=== PATIENT | male | born 1940 | race Caucasian/White ===

== ENCOUNTER 2020-11-08 07:15 | Day surgery (SDC) | payer MEDICARE, OTHER ==
[2020-11-06 11:33] VITALS: BMI 25.7
[~2020-11-08 07:15] MED LIST: ALPRAZolam 0.25 MG TAB PO PRN; ALPRAZolam 0.5 MG TAB PO PRN; ASPIRIN 325 MG TAB PO STA; ATORVASTATIN 80 MG TAB PO STA; HEPARIN SODIUM,PORCINE 10,000 UNIT in SODIUM CHLORIDE 0.9% 1,000 ML IRRIGATION PRN; HEPARIN SODIUM,PORCINE 2,500 UNIT in SODIUM CHLORIDE 0.9% 250 ML IRRIGATION PRN; NITROGLYCERIN SL TABS 0.4 MG TAB SUBLINGUAL PRN; SODIUM CHLORIDE 0.9% 1,000 ML in EMPTY BAG 1 BAG IV ONE
[2020-11-08] MEDS ORDERED: ASPIRIN 81 MG ONE (07:35)
[2020-11-08] MEDS ORDERED: lisinopriL 5 MG TAB PO STA (07:41)
[2020-11-08 07:46] VITALS: RESP 18; TEMP 97.2
[2020-11-08 07:52] LABS: Glucose,Whole Blood 176 mg/dL (75-99)
[2020-11-08 07:59] LABS: Basophils % (A) 1 %; Eosinophils # (A) 0.2 k/uL (0-0.7); Eosinophils % (A) 5 %; HGB 14.8 gm/dL (13.0-17.5); Lymphocytes # (A) 1.5 k/uL (1.0-4.8); Lymphocytes % (A) 36 %; MCH 32.1 pg (25.0-35.0); MCHC 33.7 g/dL (31.0-37.0); MCV 95.2 fL (80.0-100.0); Mean Platelet Volume 7.7; Monocytes # (A) 0.4 k/uL (0-1.0); Monocytes % (A) 9 %; Neutrophils # (A) 1.9 k/uL (1.3-7.7); Neutrophils % (A) 46 %; Platelet Count 195 k/uL (150-450); RBC 4.63 m/uL (4.30-5.90); RDW 13.2 % (11.5-15.5); WBC 4.1 k/uL (3.8-10.6)
[2020-11-08 08:08] LABS: African American GFR (CKD) >90 (>60 ml/min/1.73 sqM); Anion Gap 8 mmol/L; Blood Urea Nitrogen 18 mg/dL (9-20); Calcium 9.6 mg/dL (8.4-10.2); Carbon Dioxide 24 mmol/L (22-30); Chloride 105 mmol/L (98-107); Glucose 200 mg/dL (74-99); Non-African American GFR(CKD) >90 (>60 ml/min/1.73 sqM); Sodium 137 mmol/L (137-145)
[2020-11-08 08:12] LABS: Potassium 4.4 mmol/L (3.5-5.1)
[2020-11-08] MEDS ORDERED: LIDOCAINE 1% INJ 10MG/ML (20 ML MDV) ONE (08:29)
[2020-11-08] MEDS ORDERED: VERAPAMIL 2.5 MG/ML 2 ML AMP ONE (08:29)
[2020-11-08] MEDS ORDERED: fentaNYL (PF) 50 MCG/ML 2 ML AMP ONE (08:51)
[2020-11-08] MEDS ORDERED: fentaNYL (PF) 50 MCG/ML 2 ML AMP IV ONE (09:07)
[2020-11-08] MEDS ORDERED: LIDOCAINE 1% INJ 10MG/ML (20 ML MDV) SQ ONE (09:09)
[2020-11-08] MEDS ORDERED: VERAPAMIL SYRINGE (5 MG/10 ML) INTRAARTER ONE (09:11)
[2020-11-08] MEDS ORDERED: HEPARIN SODIUM 1,000 UN/ML (10ML VL) IV ONE (09:16)
[2020-11-08] MEDS ORDERED: IOPAMIDOL-370 125ML BTL INJ ONE (09:23)
[2020-11-08] MEDS ORDERED: RX INFO: IV CONTRAST WAS GIVEN 1 EACH MISC MISCELLANE PRN (09:32)
[2020-11-08] MEDS ORDERED: SODIUM CHLORIDE 0.9% 1,000 ML IV SCH (09:45)
[2020-11-08 13:36] VITALS: BP 121/54; PULSE 56
--- NOTE | 2020-11-08 14:43 | CC ---
CARDIAC CATHETERIZATION REPORT Mr. Wyatt is an 80-year-old male with known history of hypertension, hyperlipidemia, diabetes mellitus, who has been complaining of chest discomfort. He underwent myocardial perfusion imaging that revealed evidence of inducible ischemia. In view of that, recommendation was made regarding cardiac catheterization. The procedure as well as the risks and the complications were discussed with the patient, who is in full understanding and agreement. 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 Using Xylocaine anesthesia, Seldinger technique a 6-Kazakh sheath was introduced in the right radial artery. Selective right and left coronary angiography performed using 5-Kazakh 3 and a half bend right and left Bakari catheter. Multiple views of the coronary artery including hemiaxial views were obtained. Following that 5-Kazakh tight pigtail catheter was introduced in the left ventricle and pressures were calculated. Following that, catheter and sheath were removed. Hemostasis was obtained with deployment of TR band. There was no immediate complication. Patient was returned to his room in stable condition. Of note, the patient received 4000 units of intravenous heparin as well as intra-arterial verapamil. FINDINGS: FLUOROSCOPY: There was calcification involving the left anterior descending artery. SELECTIVE CORONARY ANGIOGRAPHY: LEFT MAIN: This is a large sized vessel bifurcating into left circumflex, left anterior descending artery. Left main coronary artery has no evidence of high-grade stenosis. LEFT ANTERIOR DESCENDING ARTERY: This is a large-sized vessel reaching to the apex with a wraparound apex segment giving rise to a large diagonal branch proximally. After the takeoff of diagonal branch, there is a 20% plaque. The rest of the vessel has no high- grade stenosis. LEFT CIRCUMFLEX: This is a nondominant vessel, large in caliber giving rise to 2 obtuse marginal branches. The first obtuse marginal branch has a 30% to 40% plaque in the mid segment. The left circumflex and 2nd obtuse marginal branch has a 20% plaque. The rest of the vessel has no high-grade stenosis. RIGHT CORONARY ARTERY: This is a large dominant vessel bifurcating distally PDA and posterolateral segment and branches. The right coronary artery in mid segment has a plaque of about 20% stenosis. The rest of the vessel has no high-grade stenosis. LEFT VENTRICULOGRAM: Was not performed. HEMODYNAMICS: There was no gradient across the aortic valve. The left ventricular end-diastolic pressure was 10-14 mmHg. CONCLUSION: 1. Calcified coronary arteries. 2. Mild triple-vessel disease. RECOMMENDATION: In view of findings and anatomy, I recommend continued medical therapy with the aggressive coronary risk factors that have been initiated. Those findings and recommendation were discussed with the patient and his family and they are in full understanding and agreement. Duration of sedation is 14 minutes. KEITH / THELMA: [id number] /
[2020-11-09] MEDS ORDERED: lisinopriL 5 MG TAB PO SCH (09:00)
[2020-11-09] MEDS ORDERED: ASPIRIN 81 MG PO SCH (09:00)
[2020-11-09] MEDS ORDERED: ATORVASTATIN 10 MG TAB PO SCH (09:00)
== END 2020-11-08 13:35 | disposition home or self-care (01) ==
LOC: CATHCVL 07:15
PROVIDERS: ATTEND Internal Medicine Interventional Cardiology
DX: I25.10 Atherosclerotic heart disease of native coronary artery without angina pectoris (principal); I25.84 Coronary atherosclerosis due to calcified coronary lesion; E78.5 Hyperlipidemia, unspecified; E11.9 Type 2 diabetes mellitus without complications
CPT/HCPCS: 93458; 80048; 85025; C1894; C1769; J2001; J3010; J1644; Q9967

== ENCOUNTER → 2021-06-05 | Outpatient (CLI) | payer MEDICARE, OTHER ==
--- NOTE | 2021-06-05 12:19 | MR ---
EXAMINATION TYPE: MR brain and iac wo/w con DATE OF EXAM: 06/05/2021 COMPARISON: None HISTORY: Left sided tinnitus and hearing loss, memory loss. TECHNIQUE: Multiplanar, multisequence images of the brain and brainstem with small [id number] and high resolu tion images through the internal auditory canals performed without and with IV contrast, utilizing 7. 5 mL intravenous Gadavist . FINDINGS: There is motion on exam. Diffusion weighted images demonstrate no evidence of a recent infarct or other diffusion abnormality. There is no extra-axial fluid collection, and scattered periventricular and subcortical hyperintens ities are present on inversion recovery. The ventricular system and cisternal spaces are normal in s ize and appearance. The brain volume is age appropriate, there is cortical atrophy present. Cerebellopontine angles are unremarkable, there is no internal auditory canal mass Midline structures demonstrate normal morphology. The craniocervical junction appears within normal limits. Post contrast images demonstrate no abnormal enhancement. The dural venous sinuses appear pa tent. The visualized sinuses are remarkable for mucosal thickening in the maxillary sinuses and ethmo id air cells, and the globes are intact. IMPRESSION: Age-related atrophy and chronic small vessel ischemia. Mild sinus disease.
== END | disposition home or self-care (01) ==
LOC: RADMRIMAIN 08:38
PROVIDERS: ATTEND Nurse Practitioner Family
DX: I99.8 Other disorder of circulatory system (principal)
CPT/HCPCS: 70553; A9585